=== PATIENT | female | born 1985 | race Caucasian/White ===

== ENCOUNTER 2016-11-08 20:35 | Emergency (ER) | payer BC ==
[2016-11-08 20:46] VITALS: BP 113/85
--- NOTE | 2016-11-08 21:18 | UC ---
Eye Complaint HPI - HPI Summary HPI Summary: sinus and allergy issues for 10 days, lingering right ear pain - History of Current Complaint Chief Complaint: UCEar Stated Complaint: EAR PAIN Time Seen by Provider: 11/08/16 21:17 Hx Obtained From: Patient Hx Last Menstrual Period: 10/27/16 ?: No Onset/Duration: Sudden Onset, Lasting Days Timing: Constant Severity Initially: Mild Severity Currently: Moderate - Allergies/Home Medications Allergies/Adverse Reactions: Allergies Allergy/AdvReac Type Severity Reaction Status Date / Time No Known Allergies Allergy Verified 04/29/14 08:26 Home Medications: Home Medications Norethindr/Eth Estradiol(Nf) [Lo Loestrin Fe (NF)] 1 tab PO 11/08/16 [History] PMH/Surg Hx/FS Hx/Imm Hx Previously Healthy: Yes Other History Of: Negative For: HIV, Hepatitis B, Hepatitis C, Anticoagulant Therapy - Surgical History Surgical History: Yes Surgery Procedure, Year, and Place: c section 12/07/13 - Family History Known Family History: Negative: Cardiac Disease, Hypertension - Social History Alcohol Use: Rare Substance Use Type: None Smoking Status (MU): Never Smoked Tobacco - Immunization History Most Recent Influenza Vaccination: Most Recent Tetanus Shot: utd Most Recent Pneumonia Vaccination: none Review of Systems Constitutional: Negative Skin: Negative Eyes: Negative, Other - right ear pain ENT: Ear Ache Respiratory: Negative Cardiovascular: Negative Gastrointestinal: Negative Genitourinary: Negative Motor: Negative Neurovascular: Negative Musculoskeletal: Negative Neurological: Negative Psychological: Negative All Other Systems Reviewed And Are Negative: Yes Physical Exam Triage Information Reviewed: Yes Appearance: Well-Appearing, Well-Nourished, Pain Distress Vital Signs: Initial Vital Signs Temp 97.8 F 11/08/16 20:37 Pulse 82 11/08/16 20:37 Resp 18 11/08/16 20:37 BP 113/85 11/08/16 20:37 Pulse Ox 100 11/08/16 20:37 Vital Signs Reviewed: Yes Eye Exam: Normal ENT: Positive: Pharynx normal, TM dull - right ear Dental Exam: Normal Neck: Positive: Enlarged Nodes @ - behind right ear, right cervical Respiratory Exam: Normal Cardiovascular Exam: Normal Abdominal Exam: Normal Abdomen Description: Positive: Nontender, No Organomegaly, Soft Bowel Sounds: Positive: Present Musculoskeletal Exam: Normal Neurological Exam: Normal Psychological Exam: Normal Skin Exam: Normal Eye Complaint Course/Dx - Course Course Of Treatment: hx obtained, exam performed ,meds reviewed, treated for right ear infection and sinusitis - Differential Dx/Diagnosis Provider Diagnoses: right otitis media Discharge - Discharge Plan Condition: Stable Disposition: HOME Prescriptions: Amoxicillin (*) [Amoxicillin 875 MG (*)] 875 mg PO BID #13 tab Patient Education Materials: Warm Compress or Soak (ED), Otitis Media (ED) Additional Instructions: 1. take the medication as prescribed. 2. Warm compresses to right side of neck, 3. continue with your current allergy medication
[2016-11-08] MEDS ORDERED: Amoxicillin CAP* 500 MG PO ONE (21:35)
== END 2016-11-08 21:50 | disposition home or self-care (01) ==
LOC: UCEAST 20:35
DX: H66.91 Otitis media, unspecified, right ear (principal)
CPT/HCPCS: 99212; A9270-GY; G0463

== ENCOUNTER 2017-05-31 15:39 | Emergency (ER) | payer BC | END 2017-05-31 17:22 | disposition left against medical advice (07) | LOC: UCCORT 15:39 | DX: R09.89 Other specified symptoms and signs involving the circulatory and respiratory systems (principal); Z53.21 Procedure and treatment not carried out due to patient leaving prior to being seen by health care provider ==

== ENCOUNTER 2017-05-31 15:48 | Emergency (ER) | payer BC ==
[2017-05-31 16:48] VITALS: BP 104/60
--- NOTE | 2017-05-31 17:25 | UC ---
Vance Avery Julia, scribed for Danny Carrasco MD on 05/31/17 at 1657 . General HPI - HPI Summary HPI Summary: This patient is a 32 year old F presenting to [facility] accompanied by her daughter with a chief complaint of progressing sinus congestion and sinus pain for the past week. Patient reports cracking ears, bill moore's slough green nasal discharge, and worsening sinus pain in maxillary sinuses. The patient rates the pain 6/10 in severity. She has been treating her pain with sinus decongestants and has been using humidifier. - History of Current Complaint Chief Complaint: UCRespiratory Stated Complaint: SINUS CONGESTION Time Seen by Provider: 05/31/17 16:49 Hx Obtained From: Patient Hx Last Menstrual Period: 1 WEEK AGO Onset/Duration: Lasting Weeks Timing: Constant Onset Severity: Mild Current Severity: Moderate Pain Intensity: 6 Pain Location at: maxillary sinuses Character: pressure Associated Signs & Symptoms: Positive: Other - cracking ears, bill moore's slough green nasal discharge, - Allergy/Home Medications Allergies/Adverse Reactions: Allergies Allergy/AdvReac Type Severity Reaction Status Date / Time No Known Allergies Allergy Verified 05/31/17 16:47 Home Medications: Home Medications [id number] [Tylenol Sinus Congestion 5-325-200 mg] 2 tab PO ONCE PRN 05/31/17 [History Confirmed 05/31/17] PMH/Surg Hx/FS Hx/Imm Hx Previously Healthy: Yes Other History Of: Negative For: HIV, Hepatitis B, Hepatitis C, Anticoagulant Therapy - Surgical History Surgical History: Yes Surgery Procedure, Year, and Place: c section 12/07/13 - Family History Known Family History: Negative: Cardiac Disease, Hypertension - Social History Occupation: Employed Full-time - school bus operator Alcohol Use: None Substance Use Type: None Smoking Status (MU): Never Smoked Tobacco - Immunization History Most Recent Influenza Vaccination: Most Recent Tetanus Shot: utd Most Recent Pneumonia Vaccination: none Review of Systems Constitutional: Negative - fever ENT: Ear Ache - "cracking", Nasal Discharge, Sinus Congestion, Sinus Pain/ Tenderness All Other Systems Reviewed And Are Negative: Yes Physical Exam Triage Information Reviewed: Yes Appearance: Well-Appearing, No Pain Distress Vital Signs: Initial Vital Signs Temp 98.8 F 05/31/17 16:43 Pulse 64 05/31/17 16:43 Resp 16 05/31/17 16:43 BP 104/60 01/22/18 16:43 Pulse Ox 100 05/31/17 16:43 Vital Signs Reviewed: Yes Eyes: Positive: Conjunctiva Clear ENT: Positive: Pharynx normal, TMs normal, Sinus tenderness - bilateral maxillary Neck: Positive: Supple, Nontender Respiratory: Positive: Lungs clear, Normal breath sounds Cardiovascular: Positive: RRR, No Murmur Musculoskeletal: Positive: Strength Intact, ROM Intact Neurological: Positive: Alert, Muscle Tone Normal Psychological Exam: Normal Skin Exam: Normal Course/Dx - Course Course Of Treatment: 32 yr old with sinusitis. Plan DC home on Augmentin - Differential Dx - Multi-Symptom Provider Diagnoses: sinusitis Discharge - Discharge Plan Condition: Good Disposition: HOME Prescriptions: Amoxicillin/Clavulanate TAB* [Augmentin TAB 875*] 875 mg PO BID #20 tab Patient Education Materials: Sinusitis (ED) Referrals: Maylin Friend MD [Primary Care Provider] - 2 Days The documentation as recorded by the Vance de la rosa Julia accurately reflects the service I personally performed and the decisions made by Luna kerr Walter, MD.
== END 2017-05-31 17:15 | disposition home or self-care (01) ==
LOC: UCEAST 15:48
DX: J32.9 Chronic sinusitis, unspecified (principal)
CPT/HCPCS: 99212; G0463